=== PATIENT | female | born 1940 ===

== ENCOUNTER 2016-09-02 22:22 | Emergency (ER) | payer MEDICARE, BC ==
[~2016-09-02] VITALS: Ht 157.5 cm; Wt 56.8 kg
[2016-09-02] MEDS ORDERED: SODIUM CHLORIDE 250 ML IV PRN (22:40)
[2016-09-02] MEDS ORDERED: SODIUM CHLORIDE FLUSH 10 ML SYR IV PRN (22:40)
[2016-09-02] MEDS ORDERED: SODIUM CHLORIDE FLUSH 3 ML SYR IV PRN (22:40)
[2016-09-02] MEDS ORDERED: NITROGLYCERIN SUBLINGUAL 0.4 MG (NITROQUICK) TABLET SL PRN (22:40)
[2016-09-02] MEDS ORDERED: ONDANSETRON 2 MG/ML (Z0FRAN) 2 ML VIAL IV ONE (22:40)
[2016-09-02] MEDS ORDERED: ASPIRIN 81 MG CHEW (CHILDREN'S ASA) PO ONE (22:40)
[2016-09-02] MEDS ORDERED: morphine INJ 4 MG/ML 1 ML SYRINGE IV PRN (22:40)
[2016-09-02 22:56] LABS: BASOPHILS % (AUTO) 0 % (0-2); EOSINOPHILS # (AUTO) 0.1 10^3uL; EOSINOPHILS % (AUTO) 2 % (0-4); LYMPHOCYTES # (AUTO) 2.7 X10^3; MEAN CORPUSCULAR VOLUME 89 FL (80-100); MEAN PLATELET VOLUME 9.2 FL (6.0-9.5); MONOCYTES # (AUTO) 0.8 X10^3; MONOCYTES % (AUTO) 11 % (3-11); NEUTROPHILS # (AUTO) 4.2 X10^3; NEUTROPHILS % (AUTO) 53 % (51-67); PLATELET COUNT 330 10^3uL (150-450); WHITE BLOOD COUNT 7.91 10^3uL (4.0-11.0)
[2016-09-02 22:58] LABS: ALBUMIN 4.6 g/dL (3.4-5.0); ALKALINE PHOSPHATASE 65 U/L (38-126); ANION GAP 16.7 MEQ/L (3-15); BUN/CREATININE RATIO 17 (10-20); CREATINE KINASE 50 U/L (30-135); TOTAL PROTEIN 7.4 g/dL (6.4-8.5)
[2016-09-02 23:02] LABS: MEAN CORPUSCULAR HEMOGLOBIN 32.7 PG (26.0-34.0)
--- NOTE | 2016-09-03 00:14 | NUR ---
Neither pt nor knew what medications the pt was taking. I was able to pull up the meds that the pt has gotten from the pharmacy and put them in but I do not have dosing information.
--- NOTE | 2016-09-03 01:00 | NUR ---
Pt states she is not nauseous. Held the Zofran. Dr. Raza notified.
[2016-09-03 01:55] VITALS: BP 137/86
== END 2016-09-03 01:56 | disposition home or self-care (01) ==
LOC: ED 22:24
DX: K21.9 Gastro-esophageal reflux disease without esophagitis (principal); R07.89 Other chest pain
CPT/HCPCS: 36415; 71010; 80053; 82550; 82553; 84484; 85025; 85610; 85730; 93005; 99285; A9270; 93010